=== PATIENT | male | born 1960 | race Caucasian/White ===

== ENCOUNTER 2017-03-07 19:14 | Emergency (ER) | payer MEDICARE, OTHER ==
[~2017-03-07] VITALS: Ht 172.7 cm; Wt 94.5 kg
[~2017-03-07 19:14] MED LIST: ASPI-664 PO; CLOP75TA28 PO; FURO40TA4 PO; GLIP-95 PO; LISI20TA11 PO; METF500T4 PO; METO-429 PO; OMEP40CA6 PO; POTA10TA97 PO; SMV40T PO
[2017-03-07 19:20] VITALS: Ht 172.7 cm; Wt 94.5 kg
[2017-03-07 19:58] LABS: ADD SCAN DIFF NO
[2017-03-07 20:00] LABS: BASOPHILS % 0.5 % (0.0-2.0); EOSINOPHILS # 0.4 10^3/ul (0.0-0.5); EOSINOPHILS % 5.3 % (0.0-7.0); HEMATOCRIT 39.3 % (42.0-52.0); HEMOGLOBIN 13.5 g/dl (14.0-18.0); LYMPHOCYTES % 26.2 % (15.0-51.0); MEAN CORPUSCULAR HEMOGLOBIN 31.5 pg (29.0-33.0); MEAN CORPUSCULAR HGB CONC 34.4 g/dl (32.0-37.0); MEAN CORPUSCULAR VOLUME 91.8 fl (82.0-101.0); MEAN PLATELET VOLUME 11.5 fl (7.4-10.4); MONOCYTE # 0.7 10^3/ul (0.3-0.9); MONOCYTES % 8.8 % (0.0-11.0); NEUTROPHIL # 4.5 10^3/ul (1.6-7.5); NEUTROPHILS % 58.8 % (39.0-77.0); PLATELET COUNT 237 10^3/UL (140-415); RED BLOOD COUNT 4.28 10^6/ul (4.70-6.10); RED CELL DISTRIBUTION WIDTH 11.9 % (11.5-14.5); WHITE BLOOD COUNT 7.7 10^3/ul (4.8-10.8)
[2017-03-07] MEDS ORDERED: MAGNESIUM SULFATE 2 GM/50 ML 50 ML IVPB ONE (20:00)
[2017-03-07 20:15] LABS: INR 0.92; PROTIME 12.4 Sec (12.2-14.2)
[2017-03-07 20:16] LABS: PARTIAL THROMBOPLASTIN TIME 26.9 Sec (25.0-35.0)
[2017-03-07] MEDS ORDERED: LORA10TA3 PO (20:20)
[2017-03-07 20:31] LABS: ANION GAP 10 (8-16); BLOOD UREA NITROGEN 13 mg/dl (7-20); CALCIUM 8.7 mg/dl (8.4-10.2); CARBON DIOXIDE 27 mmol/L (21-31); CHLORIDE 101 mmol/L (97-110); GLUCOSE 216 mg/dl (70-220); MAGNESIUM 1.8 mg/dl (1.7-2.5); POTASSIUM 4.1 mmol/L (3.5-5.1); SODIUM 134 mmol/L (135-144)
[2017-03-07 20:52] LABS: ACETAMINOPHEN < 10.0 ug/ml (10.0-30.0); ETHANOL < 10.0 mg/dl; SALICYLATE < 1.0 mg/dl (5.0-30.0)
[2017-03-07 20:53] LABS: TROPONIN-I < 0.012 ng/ml (0.00-0.12)
[2017-03-07 21:02] LABS: THYROID STIMULATING HORMONE 0.518 MIU/L (0.465-4.680)
[2017-03-07 21:10] LABS: BARBITURATES NEGATIVE (NEGATIVE); BENZODIAZEPINES NEGATIVE (NEGATIVE); CANNABINOIDS POSITIVE (NEGATIVE); COCAINE NEGATIVE (NEGATIVE); OPIATES NEGATIVE (NEGATIVE)
--- NOTE | 2017-03-07 21:37 | ERD ---
ER Documentation Chief Complaint Date/Time DATE: 03/07/17 TIME: 21:36 Chief Complaint generalize body weakness x 1 day HPI Patient is a 57-year-old male with diabetes who presents saying that he feels swollen. He says that he has a swollen face and swollen hands and that his head feels heavy. He says "I took a pill by accident". 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 He did not know what kind of pill it was. He thought it might be candidate he says. He has a pacemaker but did not get shocked by his pacemaker. ROS All systems reviewed and are negative except as per history of present illness. Medications Home Meds Reported Medications Loratadine* (Loratadine*) 10 Mg Tablet, 10 MG PO DAILY Y for PRN, #30 TAB 03/07/17 Clopidogrel Bisulfate (Clopidogrel) 75 Mg Tablet, 75 MG PO DAILY, #30 10/26/15 Metoprolol Tartrate* (Lopressor*) 50 Mg Tab, 50 MG PO BID, #60 10/26/15 Glipizide* (Glipizide*) 10 Mg Tablet, 10 MG PO BID, #60 10/26/15 Potassium Chloride (Klor-Con) 10 Meq Tablet.sa, 10 MEQ PO DAILY 09/04/11 Furosemide* (Furosemide*) 40 Mg Tablet, 40 MG PO DAILY 06/06/11 Aspirin* (Aspirin* EC) 81 Mg Tablet.dr, 81 MG PO DAILY 06/06/11 Lisinopril* (Lisinopril*) 20 Mg Tablet, 20 MG PO DAILY 06/06/11 Simvastatin (Simvastatin) 40 Mg Tablet, 40 MG PO DAILY 06/06/11 Metformin Hcl* (Metformin Hcl*) 500 Mg Tablet, 500 MG PO BID 06/06/11 Discontinued Reported Medications Omeprazole* (Omeprazole*) 40 Mg Capsule.dr, 40 MG PO AC BREAKFAST, #30 10/26/15 Allergies Allergies: Coded Allergies: No Known Drug Allergy (Verified Allergy, Unknown, 03/07/17) PMhx/Soc History of Surgery: No Anesthesia Reaction: No Hx Neurological Disorder: No Hx Respiratory Disorders: No Hx Cardiac Disorders: Yes (IN, PACEMAKER, hypotension) Hx Psychiatric Problems: No Hx Miscellaneous Medical Probl: Yes (DM) Hx Alcohol Use: No Hx Substance Use: No Hx Tobacco Use: No Smoking Status: Never smoker FmHx Family History: No diabetes Physical Exam Vitals Vital Signs Date Time Temp Pulse Resp B/P Pulse Ox O2 Delivery O2 Flow Rate FiO2 03/07/17 21:45 98.4 65 12 119/64 98 Room Air 03/07/17 19:20 97.7 80 20 148/75 100 Physical Exam Const: No acute distress Head: Atraumatic Eyes: Normal Conjunctiva ENT: Normal External Ears, Nose and Mouth. Neck: Full range of motion..~ No meningismus. Resp: Clear to auscultation bilaterally Cardio: Regular rate and rhythm, no murmurs Abd: Soft, non tender, non distended. Normal bowel sounds Skin: No petechiae or rashes Back: No midline or flank tenderness Ext: No cyanosis, or edema Neur: Awake and alert Psych: Normal Mood and Affect Result Diagram: 03/07/17193403/07/171934 Results 24 hrs Laboratory Tests Test 03/07/17 19:35 03/07/17 19:45 03/07/17 20:10 White Blood Count 7.710^3/ul Red Blood Count 4.2810^6/ul Hemoglobin 13.5g/dl Hematocrit 39.3% Mean Corpuscular Volume 91.8fl Mean Corpuscular Hemoglobin 31.5pg Mean Corpuscular Hemoglobin Concent 34.4g/dl Red Cell Distribution Width 11.9% Platelet Count 93289^3/UL Mean Platelet Volume 11.5fl Neutrophils % 58.8% Lymphocytes % 26.2% Monocytes % 8.8% Eosinophils % 5.3% Basophils % 0.5% Nucleated Red Blood Cells % 0.0/100WBC Neutrophils # 4.510^3/ul Lymphocytes # 2.010^3/ul Monocytes # 0.710^3/ul Eosinophils # 0.410^3/ul Basophils # 0.010^3/ul Nucleated Red Blood Cells # 0.010^3/ul Prothrombin Time 12.4Sec Prothrombin Time Ratio 1.0 INR International Normalized Ratio 0.92 Activated Partial Thromboplast Time 26.9Sec Sodium Level 134mmol/L Potassium Level 4.1mmol/L Chloride Level 101mmol/L Carbon Dioxide Level 27mmol/L Anion Gap 10 Blood Urea Nitrogen 13mg/dl Creatinine 1.00mg/dl Glucose Level 216mg/dl Calcium Level 8.7mg/dl Magnesium Level 1.8mg/dl Troponin I < 0.012ng/ml Thyroid Stimulating Hormone (TSH) 0.518MIU/L Free Thyroxine 0.79ng/dl Salicylates Level < 1.0mg/dl Acetaminophen Level < 10.0ug/ml Ethyl Alcohol Level < 10.0mg/dl Urine Opiates Screen NEGATIVE Urine Barbiturates NEGATIVE Urine Amphetamines Screen NEGATIVE Urine Benzodiazepines Screen NEGATIVE Urine Cocaine Screen NEGATIVE Urine Cannabinoids POSITIVE Current Medications Medications (Trade) Dose Ordered Sig/Alina Route PRN Reason Start Time Stop Time Status Last Admin Dose Admin Magnesium Sulfate (Magnesium Sulfate 2 Gm/50 ml) 50 ml @ 25 mls/hr ONCE ONCE IVPB 03/07/17 20:00 03/07/17 20:00 DC Procedures/MDM EKG read by me: Rate/Rhythm: Paced rhythm at a normal rate Intervals: Normal Impression: Paced rhythm with negative Sgarbossa criteria PROCEDURE: XR Chest. CLINICAL INDICATION: Chest pain. TECHNIQUE: Single frontal view. COMPARISON: None. FINDINGS: The lungs are clear. There is an azygos fissure, a normal variant. The heart is enlarged. There is a left-sided biventricular permanent pacemaker/ internal cardiac defibrillator. There is no pleural effusion. There is no pneumothorax. IMPRESSION: 1. Cardiomegaly. 2. Left-sided biventricular permanent pacemaker/internal cardiac defibrillator. 3. Azygos fissure, a normal variant. 4. Otherwise unremarkable study. RPTAT: QQ .Trace Hines MD, MD Date Time Electronically viewed and signed by .Trace Hines MD, on 03/07/2017 21:55 Patient is a 57-year-old male with diabetes who presents with a feeling of swollen face and hands. I believe he is suffering from an accidental overdose. He does not know what pill he took but there is no sign of aspirin Tylenol or alcohol overdose. His urine junction was positive for marijuana. It is unclear as to what he took. At this point I do not think he has significant cardiac arrhythmia. His EKG shows a paced rhythm. He did not get shocked by his defibrillator. He can return for any worsening symptoms. I told him not to use unknown pills in the future. Departure Diagnosis: Primary Impression: Overdose Encounter type: initial encounter Injury intent: accidental or unintentional Qualified Code: T50.901A - Overdose, accidental or unintentional , initial encounter Additional Impressions: Acute weakness Anemia Anemia type: unspecified type Qualified Code: D64.9 - Anemia, unspecified type Condition: Fair Patient Instructions: Overdose, Accidental (Adult), Weakness, Unk Cause Additional Instructions: Call your primary care doctor TOMORROW for an appointment during the next 1-2 days.See the doctor sooner or return here if your condition worsens before your appointment time. SAVITA GALVEZ MD March 07, 2017 21:37
[2017-03-07 21:45] VITALS: BP 119/64; PULSE 65; RESP 12; TEMP 98.4
--- NOTE | 2017-03-07 21:56 | RADRPT ---
PROCEDURE: XR Chest. CLINICAL INDICATION: Chest pain. TECHNIQUE: Single frontal view. COMPARISON: None. FINDINGS: The lungs are clear. There is an azygos fissure, a normal variant. The heart is enlarged. There is a left-sided biventricular permanent pacemaker/internal cardiac def ibrillator. There is no pleural effusion. There is no pneumothorax. IMPRESSION: 1. Cardiomegaly. 2. Left-sided biventricular permanent pacemaker/internal cardiac defibrillator. 3. Azygos fissure, a normal variant. 4. Otherwise unremarkable study. RPTAT: QQ .Trace Hines MD, MD Date Time Electronically viewed and signed by .Trace Hines MD, on 03/07/2017 21:55 .R/
== END 2017-03-07 21:45 | disposition home or self-care (01) ==
LOC: E/R 19:14
DX: T40.7X1A Poisoning by cannabis (derivatives), accidental (unintentional), initial encounter (principal); D64.9 Anemia, unspecified; E11.9 Type 2 diabetes mellitus without complications; R07.9 Chest pain, unspecified; Z95.0 Presence of cardiac pacemaker; Z79.84 Long term (current) use of oral hypoglycemic drugs; Z79.82 Long term (current) use of aspirin
CPT/HCPCS: 36415; 71010; 80048; 80306; 80307; 83735; 84439; 84443; 84484; 85025; 85610; 85730; 93005